=== PATIENT | female | born 1965 | race Caucasian/White ===

== ENCOUNTER → 2021-11-10 | Outpatient (CLI) | payer OTHER ==
[~2021-11-10] MED LIST: AMIT25TA9 PO; BARIUM for suspension 96% w/w (Vanilla Silq Medium Density) PO ONE; BARIUM for suspension 98% w/w (Vanilla Silq High Density) PO ONE; BUPR150T24 PO; DULO60CA59 PO; GABA300S2 PO; LISI5TAB20 PO; PROG200C10 PO; TIZA4CAP8 PO
--- NOTE | 2021-11-10 12:40 | Diagnostic Imaging Report ---
INDICATION: Acid reflux and food getting stuck in the throat. Patient ingested effervescent crystals as well as thin and thick barium and imaging of the esophagus was performed in multiple obliquities. 0.85 minutes of fluoroscopic time was utilized. Preliminary radiograph of the chest is unremarkable. The esophagus has a fairly smooth contour. No definite mass or stricture is visualized. There was some mild gastroesophageal reflux demonstrated. No hiatal hernia is seen. There are occasional tertiary contractions present. IMPRESSION: Mild gastric esophageal reflux as well as esophageal dysmotility. No other significant abnormality seen. No mass or stricture was detected. Dictated by: Dictated on workstation # [id number]
== END ==
LOC: RAD 10:30
PROVIDERS: ATTEND Surgery
DX: K21.9 Gastro-esophageal reflux disease without esophagitis (principal)
CPT/HCPCS: 74220

== ENCOUNTER 2021-11-11 05:33 | Outpatient (CLI) | payer OTHER ==
[~2021-11-11] VITALS: Ht 157.5 cm; Wt 89.3 kg
[2021-11-11] MEDS ORDERED: DULO60CA59 PO (10:36)
[2021-11-11] MEDS ORDERED: GABA300S2 PO (10:36)
[2021-11-11] MEDS ORDERED: AMIT25TA9 PO (10:36)
[2021-11-11] MEDS ORDERED: LISI5TAB20 PO (10:36)
[2021-11-11] MEDS ORDERED: BUPR150T24 PO (10:36)
[2021-11-11] MEDS ORDERED: PROG200C10 PO (10:36)
[2021-11-11] MEDS ORDERED: TIZA4CAP8 PO (10:36)
== END 2021-11-11 11:14 | disposition home or self-care (01) ==
LOC: PREOP 05:33
PROVIDERS: ATTEND Surgery
DX: Z01.818 Encounter for other preprocedural examination (principal)

== ENCOUNTER 2021-11-23 06:54 | Day surgery (SDC) | payer OTHER ==
[~2021-11-23] VITALS: Ht 157.5 cm; Wt 89.3 kg
[~2021-11-23 06:54] MED LIST changes: -BARIUM for suspension 96% w/w (Vanilla Silq Medium Density) PO ONE; -BARIUM for suspension 98% w/w (Vanilla Silq High Density) PO ONE
[2021-11-23] MEDS ORDERED: LACTATED RINGERS 1,000 ML IV STA (07:01)
[2021-11-23 07:10] VITALS: BP 125/86
[2021-11-23] MEDS ORDERED: HURRICAINE EXT TUBE (BENZOCAINE) XX PRN (07:15)
--- NOTE | 2021-11-23 07:50 | Progress Note-Pre Operative ---
Pre-Operative Progress Note H&P Reviewed The H&P was reviewed, patient examined and no changes noted. Date Seen by Provider: Nov 23, 2021 Time Seen by Provider: 07:50 Date H&P Reviewed: Nov 23, 2021 Time H&P Reviewed: 07:50 Pre-Operative Diagnosis: gerd dysphagia, hx polyps KEANU ANGUIANO DO Nov 23, 2021 07:50
[2021-11-23] MEDS ORDERED: PROPOFOL INJECTION 50 ML IV ONE (07:54)
[2021-11-23] MEDS ORDERED: MIDAZOLAM 2 MG/2 ML (VERSED) VIAL ONE (07:54)
[2021-11-23] MEDS ORDERED: PANT40TA2 PO (08:24)
[2021-11-23 08:25] VITALS: BP 91/54
--- NOTE | 2021-11-23 08:25 | Discharge Inst-Simple/Standard ---
Discharge Inst-Standard Discharge Medications New, Converted or Re-Newed RX: Transmitted to Pharmacy Patient Instructions/Follow Up Plan of Care/Instructions/FU: 2 weeks Zane Activity as Tolerated: Yes Discharge Diet: Regular Diet KEANU ANGUIANO DO Nov 23, 2021 08:25
[2021-11-23 08:30] VITALS: BP 110/59
[2021-11-23 09:20] VITALS: BP 115/65
--- NOTE | 2021-11-23 10:13 | OPERATIVE REPORT ---
DATE OF SERVICE: 11/23/2021 PREOPERATIVE DIAGNOSES: Gastroesophageal reflux disease, dysphagia, history of polyps. POSTOPERATIVE DIAGNOSES: Gastroesophageal reflux disease, dysphagia, and colon polyps x2. PROCEDURE: EGD with biopsies, colonoscopy with hot biopsy polypectomy x2. SURGEON: Keanu Degroot DO ANESTHESIA: Per CALL TAKER. ESTIMATED BLOOD LOSS: None. COMPLICATIONS: None. INDICATIONS: The patient is a 56-year-old female who has history of colon polyps and is having some dysphagia and GERD symptoms. She understands risks and benefits of procedure and wished to proceed. She had a barium swallow demonstrating some reflux and some dysmotility of the esophagus. She understands risks and benefits of procedures and wishes to proceed. Consent was signed in the chart. DESCRIPTION OF PROCEDURE: The patient was taken to the endoscopy suite, placed in left lateral recumbent position. Timeout was performed. Scope was inserted in mouth, down the esophagus, stomach and into the duodenum without difficulty. No polyps, masses or ulcerations. Scope was slowly retracted back into the stomach, which had some benign-appearing gastric polyps. No masses or ulcerations. No erythematous changes. Biopsy of the antrum was obtained. Scope was retroflexed noting no other pathology. Scope was then returned to its normal position, slowly withdrawn to distal esophagus. No polyps, masses or ulcerations in the esophagus. Biopsy of the GE junction was obtained. Scope was then slowly retracted back to completely remove, noting no other pathology. Digital rectal exam was performed just noting some internal hemorrhoids. No palpable polyps, masses or ulcerations. Scope was inserted in the rectum and advanced all the way to cecum with minimal difficulty. Prep was adequate. Scope was then slowly retracted back. No polyps, masses or ulcerations within the cecum, ascending colon. In the transverse colon, two small polyps were present, which were flat, which hot biopsy polypectomy was performed. Scope was then continuously retracted back. No polyps, masses or ulcerations within the remainder of the transverse, descending, sigmoid colon. Once in the rectum, scope was retroflexed noting no other pathology except for hemorrhoids. Scope was returned to its normal position, slowly withdrawn until completely removed. The patient tolerated procedure well without any complications. She was taken to recovery room in stable condition. RECOMMENDATIONS: Due to history of colon polyps, she will need a repeat colonoscopy in 5 years. We will start her on Protonix 40 mg daily. We will await biopsy results and go over them in the office in a couple of weeks and see how her symptoms are doing. Job ID: [id number] DocumentID: [id number] Dictated Date: 11/23/2021 08:25:36 District Sales Representative Date: 11/23/2021 10:12:45 Dictated By: KEANU DEGROOT DO
--- NOTE | 2021-11-23 14:47 | Anesthesia-General Post-Op ---
MAC Patient Condition Mental Status/LOC: Same as Preop Cardiovascular: Satisfactory Nausea/Vomiting: Absent Respiratory: Satisfactory Pain: Controlled Complications: Absent Post Op Complications Complications None Follow Up Care/Instructions Patient Instructions None needed. Anesthesiology Discharge Order Discharge Order Patient is doing well, no complaints, stable vital signs, no apparent adverse anesthesia problems. No complications reported per nursing. BLAIR OLMSTEAD CRNA Nov 23, 2021 14:47
== END 2021-11-23 09:24 | disposition home or self-care (01) ==
LOC: ENDO 06:54
PROVIDERS: ATTEND Surgery
DX: K63.5 Polyp of colon (principal); K21.00 Gastro-esophageal reflux disease with esophagitis, without bleeding; K31.7 Polyp of stomach and duodenum; K64.8 Other hemorrhoids; E66.9 Obesity, unspecified; Z79.899 Other long term (current) drug therapy; Z68.36 Body mass index [BMI] 36.0-36.9, adult